=== PATIENT | female | born 1990 | race Caucasian/White ===

== ENCOUNTER 2018-12-24 18:41 | Emergency (ER) | payer BC ==
[2018-12-24] MEDS ORDERED: Sodium Chloride 0.9% 2.5 ML Syringe FLUSH PRN (19:08)
[2018-12-24] MEDS ORDERED: Sodium Chloride 0.9% 10 ML Syringe FLUSH PRN (19:08)
[2018-12-24] MEDS ORDERED: Sodium Chloride 0.9% 1,000 ML IV ONE (19:08)
--- NOTE | 2018-12-24 19:11 | EDM.PDOC ---
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 She also complains of dizziness and shortness of breath for several weeks. She was evaluated in OB prior to coming back to the emergency room and she has scar tissue that is causing her pain. She denies any chest pain states that her urine is yellow and has no other complaints. Review of systems: As per history of present illness and below otherwise all systems reviewed and negative. Past medical history: As per history of present illness and as reviewed below otherwise noncontributory. Surgical history: As per history of present illness and as reviewed below otherwise noncontributory. Social history: No reported history of drug or alcohol abuse. Family history: As per history of present illness and as reviewed below otherwise noncontributory. Physical exam: General: Well developed, well nourished in NAD HEENT: Atraumatic, normocephalic, pupils reactive, negative for conjunctival pallor or scleral icterus, mucous membranes moist, throat clear, neck supple, nontender, trachea midline. Lungs: Clear to auscultation, breath sounds equal bilaterally, chest nontender. Heart: S1S2, regular, negative for clicks, rubs, or JVD. Abdomen: NABS, Soft, nondistended, nontender. Negative for masses or hepatosplenomegaly. Negative for costovertebral tenderness. Pelvis: Stable nontender. Genitourinary: Deferred. Rectal: Deferred. Extremities: Atraumatic, negative for cords or calf pain. Neurovascular unremarkable. Neuro: Awake, alert, oriented. Cranial nerves II through XII unremarkable. Cerebellum unremarkable. Motor and sensory unremarkable throughout. Exam nonfocal. Skin:warm and dry Diagnostics: Vital signs are stable O2 sat 99% on room air. Therapeutics: IV fluid with improvement ED Course: Stable Impression: , dizziness, dehydration Prescriptions: None Plan: Take meds as directed, follow up with your primary care physician, return to ER if symptoms worsen or change. Definitive disposition and diagnosis as appropriate pending reevaluation and review of above. Abdomen Pain Score (Numeric/FACES): 8 - Related Data Allergies Allergy/AdvReac Type Severity Reaction Status Date / Time No Known Allergies Allergy Verified 12/24/18 19:04 Home Meds: Home Meds Euo360/FA/Omega3/Dha/Fish Oil [ Gummies] 1 piece PO DAILY 12/24/18 [ History] ED ROS GENERAL - Review of Systems Review Of Systems: See Below ED EXAM - Physical Exam Exam: See Below (See history of present illness) Course - Vital Signs Last Recorded V/S: Last Vital Signs Temp 97 F 12/24/18 19:04 Pulse 77 12/24/18 19:04 Resp BP 104/58 L 12/24/18 19:04 Pulse Ox 98 12/24/18 19:04 - Orders/Labs/Meds Orders: Active Orders 24 hr Category Date Time Status Sodium Chloride 0.9% [Saline Flush] Med 12/24/18 19:08 Active 10 ml FLUSH ASDIRECTED PRN Sodium Chloride 0.9% [Saline Flush] Med 12/24/18 19:08 Active 2.5 ml FLUSH ASDIRECTED PRN Saline Lock Insert [OM.PC] Stat Oth 12/24/18 19:08 Ordered Medication Orders Sodium Chloride (Saline Flush) 10 ml FLUSH ASDIRECTED PRN PRN Reason: Keep Vein Open Last Admin: 12/24/18 19:23 Dose: 10 ml Sodium Chloride (Saline Flush) 2.5 ml FLUSH ASDIRECTED PRN PRN Reason: Keep Vein Open Last Admin: 12/24/18 19:23 Dose: 2.5 ml Meds: Medications Generic Name Dose Route Start Last Admin Trade Name Freq PRN Reason Stop Dose Admin Sodium Chloride 10 ml 12/24/18 19:08 12/24/18 19:23 Saline Flush FLUSH 10 ml ASDIRECTED PRN Administration Keep Vein Open Sodium Chloride 2.5 ml 12/24/18 19:08 12/24/18 19:23 Saline Flush FLUSH 2.5 ml ASDIRECTED PRN Administration Keep Vein Open Discontinued Medications Generic Name Dose Route Start Last Admin Trade Name Freq PRN Reason Stop Dose Admin Sodium Chloride 1,000 mls @ 999 mls/hr 12/24/18 19:08 12/24/18 19:23 Normal Saline IV 12/24/18 20:08 999 mls/hr .Bolus ONE Administration Departure - Departure Time of Disposition: 20:29 Disposition: Home, Self-Care 01 Condition: Good Clinical Impression: Dehydration - Discharge Information *PRESCRIPTION DRUG MONITORING PROGRAM REVIEWED*: No *COPY OF PRESCRIPTION DRUG MONITORING REPORT IN PATIENT JAE: No Referrals: PCP,None [Primary Care Provider] - Forms: ED Department Discharge Additional Instructions: The following information is given to patients seen in the emergency department who are being discharged to home. This information is to outline your options for follow-up care. We provide all patients seen in our emergency department with a follow-up referral. The need for follow-up, as well as the timing and circumstances, are variable depending upon the specifics of your emergency department visit. If you don't have a primary care physician on staff, we will provide you with a referral. We always advise you to contact your personal physician following an emergency department visit to inform them of the circumstance of the visit and for follow-up with them and/or the need for any referrals to a consulting specialist. The emergency department will also refer you to a specialist when appropriate. This referral assures that you have the opportunity for follow-up care with a specialist. All of these measure are taken in an effort to provide you with optimal care, which includes your follow-up. Under all circumstances we always encourage you to contact your private physician who remains a resource for coordinating your care. When calling for follow-up care, please make the office aware that this follow-up is from your recent emergency room visit. If for any reason you are refused follow-up, please contact the [facility] at and asked to speak to the emergency department charge nurse. [facility] [address] [place] [id number] - My Orders Last 24 Hours: My Active Orders 12/24/18 19:08 Sodium Chloride 0.9% [Saline Flush] 10 ml FLUSH ASDIRECTED PRN Sodium Chloride 0.9% [Saline Flush] 2.5 ml FLUSH ASDIRECTED PRN Saline Lock Insert [OM.PC] Stat - Assessment/Plan Last 24 Hours: My Active Orders 12/24/18 19:08 Sodium Chloride 0.9% [Saline Flush] 10 ml FLUSH ASDIRECTED PRN Sodium Chloride 0.9% [Saline Flush] 2.5 ml FLUSH ASDIRECTED PRN Saline Lock Insert [OM.PC] Stat
== END 2018-12-24 20:40 | disposition home or self-care (01) ==
LOC: MW.ED 18:41
DX: O99.282 Endocrine, nutritional and metabolic diseases complicating pregnancy, second trimester (principal); E86.0 Dehydration; Z3A.20 20 weeks gestation of pregnancy
CPT/HCPCS: 96360; 99284; J7040

== ENCOUNTER 2019-03-15 05:50 | Inpatient (IN) | payer MEDICAID, BC ==
[2019-03-15] MEDS ORDERED: Sodium Chloride 0.9% 2.5 ML Syringe FLUSH PRN (05:59)
[2019-03-15] MEDS ORDERED: Sodium Chloride 0.9% 10 ML SDV IV PRN (05:59)
[2019-03-15] MEDS ORDERED: ceFAZolin 2 GM in Premix Bag 1 BAG IV ONE (05:59)
[2019-03-15] MEDS ORDERED: Sodium Chloride 0.9% 10 ML Syringe FLUSH PRN (05:59)
[2019-03-15] MEDS ORDERED: Citric Acid/Sodium Citrate Solution 30 ML Cup PO ONE (05:59)
[2019-03-15] MEDS ORDERED: Oxytocin/0.9 % Sodium Chloride 30 UNIT/500 ML BAG IV SCH (06:00)
[2019-03-15] MEDS: Lactated Ringers 1,000 ML IV SCH ×2 (06:00→07:25)
[2019-03-15] MEDS ORDERED: ceFAZolin/Dextrose,Iso-Osmotic 2 GM/50 ML Duplex Bag IV ONE (07:07)
[2019-03-15] MEDS ORDERED: Oxytocin 10 Units/1 ML SDV ONE ×2 (07:16→10:09)
[2019-03-15] MEDS ORDERED: ePHEDrine 50 MG/ML SDV ONE ×2 (07:16→10:09)
[2019-03-15] MEDS ORDERED: Sodium Chloride 0.9% 20 ML ONE (07:18)
--- NOTE | 2019-03-15 07:23 | PCM.PREANE ---
Preanesthetic Assessment - Anesthesia/Transfusion/Family Hx Anesthesia History: Prior Anesthesia Without Reaction Family History of Anesthesia Reaction: No Transfusion History: No Prior Transfusion(s) Intubation History: Unknown - Review of Systems General: No Symptoms Pulmonary: No Symptoms Cardiovascular: No Symptoms Gastrointestinal: No Symptoms Neurological: No Symptoms Other: Reports: None - Physical Assessment Height: 6 ft Weight: 97.522 kg ASA Class: 2 Mental Status: Alert & Oriented x3 Airway Class: Mallampati = 2 Dentition: Reports: Normal Dentition Thyro-Mental Finger Breadths: 3 Mouth Opening Finger Breadths: 3 ROM/Head Extension: Full Lungs: Clear to Auscultation, Normal Respiratory Effort Cardiovascular: Regular Rate, Regular Rhythm - Lab Values: Laboratory Last Values WBC 11.81 K/uL (4.0-11.0) H 03/15/19 06:42 RBC 4.46 M/uL (4.30-5.90) 03/15/19 06:42 Hgb 11.9 g/dL (12.0-16.0) L 03/15/19 06:42 Hct 36.8 % (36.0-46.0) 03/15/19 06:42 MCV 82.5 fL (80.0-98.0) 03/15/19 06:42 MCH 26.7 pg (27.0-32.0) L 03/15/19 06:42 MCHC 32.3 g/dL (31.0-37.0) 03/15/19 06:42 RDW Std Deviation 42.8 fl (28.0-62.0) 03/15/19 06:42 RDW Coeff of Melissa 14 % (11.0-15.0) 03/15/19 06:42 Plt Count 200 K/uL (150-400) 03/15/19 06:42 MPV 11.00 fL (7.40-12.00) 03/15/19 06:42 Nucleated RBC % 0.0 /100WBC 03/15/19 06:42 Nucleated RBCs # 0 K/uL 03/15/19 06:42 - Allergies Allergies/Adverse Reactions: Allergies Allergy/AdvReac Type Severity Reaction Status Date / Time Penicillins Allergy Rash Verified 03/09/19 10:00 - Blood Blood Available: No - Anesthesia Plan Pre-Op Medication Ordered: None - Acknowledgements Anesthesia Type Planned: Spinal Pt an Appropriate Candidate for the Planned Anesthesia: Yes Alternatives and Risks of Anesthesia Discussed w Pt/Guardian: Yes Pt/Guardian Understands and Agrees with Anesthesia Plan: Yes PreAnesthesia Questionnaire HEENT History: Reports: None Cardiovascular History: Reports: None Respiratory History: Reports: None Gastrointestinal History: Reports: Other (See Below) Other Gastrointestinal History: heartburn during Genitourinary History: Reports: UTI, Recurrent 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: Musculoskeletal History: Reports: None Neurological History: Reports: None Psychiatric History: Reports: ADHD Other Psychiatric History: treated for ADHD in the past Endocrine/Metabolic History: Reports: None Hematologic History: Reports: None Immunologic History: Reports: None Oncologic (Cancer) History: Reports: None Dermatologic History: Reports: None - Infectious Disease History Infectious Disease History: Reports: Chicken Pox - Past Surgical History Head Surgeries/Procedures: Reports: None HEENT Surgical History: Reports: Oral Surgery Cardiovascular Surgical History: Reports: None Respiratory Surgical History: Reports: None GI Surgical History: Reports: None Female Surgical History: Reports: Section Other Female Surgeries/Procedures: c/section x3 Endocrine Surgical History: Reports: None Neurological Surgical History: Reports: None Musculoskeletal Surgical History: Reports: Other (See Below) Other Musculoskeletal Surgeries/Procedures:: rt bunionectomy, surgery to rt index finger Dermatological Surgical History: Reports: None - SUBSTANCE USE Smoking Status *Q: Former Smoker Tobacco Use Within Last Twelve Months: Cigarettes Second Hand Smoke Exposure: Yes Recreational Drug Use History: No - HOME MEDS Home Medications: Home Meds Pnv No.103/Folic/Om3s/Fish Oil [ Gummies] 1 tab.chew CHEW DAILY [History] - CURRENT (IN HOUSE) MEDS Current Meds: Current Medications Lactated Ringer's (Ringers, Lactated) 1,000 mls @ 500 mls/hr IV BOLUS ANGIE Oxytocin/Sodium Chloride (Oxytocin 30 Unit/500 Ml-Ns) 30 unit in 500 mls @ 250 mls/hr IV TITRATE ANGIE Sodium Chloride (Saline Flush) 10 ml FLUSH ASDIRECTED PRN PRN Reason: Keep Vein Open Sodium Chloride (Saline Flush) 2.5 ml FLUSH ASDIRECTED PRN PRN Reason: Keep Vein Open Sodium Chloride (Normal Saline) 10 ml IV ASDIRECTED PRN PRN Reason: IV Use Discontinued Medications Cefazolin Sodium/Dextrose (Ancef) Confirm Administered Dose 2 gm IV .STK-MED ONE Stop: 03/15/19 07:08 Citric Acid/Sodium Citrate (Bicitra Solution) 30 ml PO ONETIME ONE Stop: 03/15/19 06:00 Ephedrine Sulfate (Ephedrine Sulfate) Confirm Administered Dose 50 mg .ROUTE .STK-MED ONE Stop: 03/15/19 07:17 Cefazolin Sodium/Dextrose 2 gm (/ Premix) 50 mls @ 100 mls/hr IV ONETIME ONE Stop: 03/15/19 06:28 Sodium Chloride (Normal Saline) Confirm Administered Dose 20 mls @ as directed .ROUTE .STK-MED ONE Stop: 03/15/19 07:19 Oxytocin (Pitocin) Confirm Administered Dose 20 unit .ROUTE .STK-MED ONE Stop: 03/15/19 07:17
[2019-03-15] MEDS ORDERED: Phenylephrine/Normal Saline 100 MCG/ML 10 ML Syringe ONE (07:26)
[2019-03-15] MEDS ORDERED: Octyl 2-Cyanoacrylate 1 Tube ONE (07:42)
[2019-03-15] MEDS ORDERED: Morphine PF 10 MG/10 ML SDV ONE (07:48)
[2019-03-15] MEDS ORDERED: Ondansetron 4 MG/2 ML SDV ONE (08:29)
--- NOTE | 2019-03-15 08:52 | PCM.OPNOTE ---
- General Post-Op/Procedure Note Date of Surgery/Procedure: 03/15/19 Operative Procedure(s): repeat low transverse Findings: Liveborn male 7/9 weight 4050 grams. Adhesion on left uterus to anterior wall near round ligament, extensive filmy adhesions over lower uterine segment. Pre Op Diagnosis: 39 weeks previous . Post-Op Diagnosis: Same Anesthesia Technique: Spinal Primary Surgeon: Ivis Olguin Secondary Surgeon: Anaid Caballero Anesthesia Provider: Carissa Devi Pathology: none Fluid Replacement, Intraop: 2,800 Output, Urine Amount: 100 EBL in mLs: 1,000 (including amniotic fluid) Complications: None Known Condition: Good
[2019-03-15] MEDS ORDERED: Bisacodyl 10 MG Supp RECTAL PRN (08:53)
[2019-03-15] MEDS ORDERED: Acetaminophen/oxyCODONE 325-5 MG Tab PO PRN ×3 (08:53→09:52)
[2019-03-15] MEDS ORDERED: Lanolin 100% Cream 7 GM Tube TOP PRN (08:53)
[2019-03-15] MEDS ORDERED: Ondansetron 4 MG/2 ML SDV IVPUSH PRN ×2 (08:53→09:52)
[2019-03-15] MEDS ORDERED: diphenhydrAMINE 50 MG/ML SDV IVPUSH PRN ×2 (08:53→09:52)
[2019-03-15] MEDS ORDERED: Lactated Ringers 1,000 ML IV SCH (09:00)
[2019-03-15] MEDS: Ketorolac 30 MG/ML SDV IVPUSH SCH ×3 (09:39→21:30)
[2019-03-15] MEDS ORDERED: Nalbuphine 10 MG/1 ML Vial IVPUSH PRN (09:52)
[2019-03-15] MEDS ORDERED: fentaNYL 100 MCG/2 ML SDV IVPUSH PRN (09:52)
[2019-03-15] MEDS ORDERED: Naloxone 0.4 MG/ML Syringe IVPUSH PRN (09:52)
--- NOTE | 2019-03-15 10:12 | OR ---
SURGEON: Ivis Olguin M.D. DATE OF PROCEDURE: 03/15/2019 PREOPERATIVE DIAGNOSES: A 39-week intrauterine , prior deliveries. POSTOPERATIVE DIAGNOSES: A 39-week intrauterine , prior deliveries, and pelvic adhesions. PROCEDURES: Repeat low-transverse section, adhesiolysis. PRIMARY SURGEON: Ivis Olguin MD. SURVEY RESEARCH ANALYST: Lakia Caballero, airline pilot/first officer student. ANESTHESIA: Spinal. ESTIMATED BLOOD LOSS: 1000 mL with amniotic fluid. IV FLUIDS: 2800 mL of crystalloid. URINE OUTPUT: 100 mL. FINDINGS: Liveborn male. score 7 and 9, weighing 4050 g. The tubes and ovaries appeared normal. The left side of uterus has a dense band, approximately 4 to 5 cm in length, adjacent to the left round ligament. I was able to easily proceed with the without cutting this band, which I felt would be quite vascular. There was also extensive filmy adhesions over the lower uterine segment, which were lysed. COMPLICATIONS: None known. DISPOSITION: Stable to recovery. BRIEF HISTORY: This is a 28-year-old female, G5, P 3-0-1-3. She presents at 39 weeks' gestation for a repeat delivery. She has had essentially uncomplicated care with a late transfer to our facility. She desires a repeat C- section with risks discussed including bleeding; infection; injury to bowel, bladder, blood vessels, or other organs; risk of thromboembolic event; and risk of anesthesia. Understanding all these risks, she does desire to proceed. DESCRIPTION OF PROCEDURE: With the patient in left tilt position, under adequate spinal analgesia, the abdomen was prepped with chlorhexidine and draped in usual fashion for abdominal surgery. SCDs were in place. Szymanski catheter had been placed, and she received 2 g of Ancef IV. After documentation of adequate analgesia, the prior cicatrix was excised and the incision was carried through subcutaneous tissue to the fascia, which was scored transversely in the midline. The fascia was elevated from the underlying rectus muscle and using sharp and blunt dissection. The rectus muscles were in the midline. A finger was used to enter the peritoneal cavity. There was note of filmy adhesions, and I carefully lysed these as I did extend the incision between the rectus muscles, and after a moderate degree of adhesiolysis, I was able to place the Zenon O C- section retractor with the visceroperitoneum well below the field of dissection. A transverse curvilinear incision was made over the lower uterine segment with a scalpel. Clear fluid was noted. Incision was extended laterally. The head was elevated from the pelvis to the uterine incision. Due to the scar tissue, there was not a lot of elasticity. Therefore, gentle traction with the vacuum placed 2 cm anterior to the posterior fontanelle without any pop-offs was utilized with fundal pressure to gently deliver the head without any difficulty, followed by subsequent delivery of the infant's shoulders and body. The was bulb suctioned by nose and mouth. After the cord had ceased to pulsate, it was doubly clamped and cut. The infant was handed to the nurse in attendance at delivery. The was a liveborn male. score 7 and 9, weighing 4050 g. Cord blood was collected for cord ABGs as well as routine cord blood sampling. Pitocin was initiated after delivery of the to assist with delivery of the placenta. The placenta was delivered by manual extraction. The uterus was cleaned with a dry laparotomy tape. The cervix was opened with ring forceps. The uterine incision was closed with a running lock suture of 0 Polysorb. The uterine incision was hemostatic. I did discuss with the patient whether or not she had any pain related to the left-sided adhesion. She stated that she did not. Therefore, no further dissection was performed. The Zenon O retractor was removed. The uterine incision was again inspected, it was hemostatic, therefore the rectus muscle and peritoneum were loosely approximated in the midline using a running mattress suture of 0 Polysorb. The posterior aspect of the fascia was evaluated and was hemostatic. The fascial incision was closed with a running suture of 0 Polysorb. Subcutaneous tissue was irrigated. Any areas of bleeding that were noted were cauterized. The deep subcutaneous tissue was closed with a running suture of 3-0 plain followed by a skin closure of running subcuticular suture of 3-0 Monocryl with Dermabond. Final sponge, needle, and instrument counts were reported as correct. There were no complications. The patient was transferred to recovery in good condition. MACIE MUNIZ /[id number]
[2019-03-15] MEDS ORDERED: Tranexamic Acid 1,000 MG in Sodium Chloride 0.9% 100 ML IV ONE (10:45)
[2019-03-15] MEDS ORDERED: Ondansetron 4 MG/2 ML SDV IVPUSH ONE (11:00)
[2019-03-15] MEDS ORDERED: Scopolamine 1.5 MG Transdermal Patch TRDERM PRN (11:12)
--- NOTE | 2019-03-15 11:19 | PCM.SN ---
- Free Text/Narrative Note: Called by patient's nurse that patient had episode of heavy bleeding soaking 2 pads, is feeling dizzy and diaphoretic while in bed. Given 1g TXA. Patient seen at bedside, appears stable. BP 112-113/57-59, HR 70s, O2 Sat of 99 % on 2L O2. Reports feeling dizzy with some chest pressure. Fundus firm and below the umbilicus, light trickle of blood with fundal massage. Abdomen soft and nondistended, dressing clean without bleeding. Given scopolamine patch and zofran. Continue to monitor.
--- NOTE | 2019-03-15 11:21 | PCM.POSTAN ---
POST ANESTHESIA ASSESSMENT - MENTAL STATUS Mental Status: Alert - VITAL SIGNS Vital Signs: Last Vital Signs Temp 36.9 C 03/15/19 09:09 Pulse 74 03/15/19 11:05 Resp 15 03/15/19 11:05 BP 110/57 L 03/15/19 11:05 Pulse Ox 100 03/15/19 11:05 - RESPIRATORY Respiratory Status: Respiratory Rate WNL - CARDIOVASCULAR CV Status: Pulse Rate WNL - GASTROINTESTINAL GI Status: No Symptoms - POST OP HYDRATION Hydration Status: Adequate & Stable - OBSERVATIONS Free Text/Narrative:: VSS. Patient still complains of dizziness. Dr. Olguin here and orders a scopolamine patch.
[2019-03-15] MEDS: Docusate Sodium 100 MG Cap PO SCH ×2 (14:23→22:28)
[2019-03-16] MEDS: Ketorolac 30 MG/ML SDV IVPUSH SCH ×2 (03:30→09:16)
--- NOTE | 2019-03-16 07:59 | PCM48HPAN ---
Post Anesthesia Note - EVALUATION WITHIN 48HRS OF ANESTHETIC Vital Signs in Normal Range: Yes Patient Participated in Evaluation: Yes Respiratory Function Stable: Yes Airway Patent: Yes Cardiovascular Function Stable: Yes Hydration Status Stable: Yes Pain Control Satisfactory: Yes Nausea and Vomiting Control Satisfactory: Yes Mental Status Recovered: Yes Vital Signs: Last Vital Signs Temp 36.6 C 03/16/19 03:56 Pulse 88 03/16/19 07:00 Resp 19 03/16/19 07:00 BP 104/60 03/16/19 03:56 Pulse Ox 95 03/16/19 07:00 - COMMENTS/OBSERVATIONS Free Text/Narrative:: Patient still complains of some dizziness. She still has her scopolamine patch on. RN in room. Discussed removing the scopolamine patch if she isn't nauseated anymore to see if it improves. RN and patient in agreement.
[2019-03-16] MEDS ORDERED: oxyCODONE 5 MG Tab PO PRN (08:54)
--- NOTE | 2019-03-16 08:54 | PCM.PNPP ---
- General Info Date of Service: 03/16/19 Functional Status: Reports: Pain Controlled, Tolerating Diet - Review of Systems General: Reports: No Symptoms HEENT: Reports: No Symptoms Pulmonary: Reports: No Symptoms Cardiovascular: Reports: No Symptoms Gastrointestinal: Reports: No Symptoms Genitourinary: Reports: No Symptoms Musculoskeletal: Reports: No Symptoms Skin: Reports: No Symptoms Neurological: Reports: No Symptoms Psychiatric: Reports: No Symptoms - General Info Date of Service: 03/16/19 - Patient Data Vital Signs - Most Recent: Last Vital Signs Temp 36.6 C 03/16/19 03:56 Pulse 88 03/16/19 07:00 Resp 19 03/16/19 07:00 BP 104/60 03/16/19 03:56 Pulse Ox 95 03/16/19 07:00 Weight - Most Recent: 97.522 kg I&O - Last 24 Hours: Intake & Output 03/15/19 03/16/19 03/16/19 22:59 06:59 14:59 Intake Total 2500 Output Total 625 3000 Balance -625 -500 Lab Results - Last 24 Hours: Laboratory Results - last 24 hr 03/15/19 03/16/19 Range/Units 08:26 05:14 Hgb 9.7 L (12.0-16.0) g/dL Hct 30.4 L (36.0-46.0) % Cord ABG pH 7.273 (7.18-7.38) Cord ABG Base Excess -6 (-10--2) Cord VBG pH 7.338 (7.25-7.45) Cord VBG Base Excess -3 (-10--2) Med Orders - Current: Current Medications Bisacodyl (Dulcolax) 10 mg RECTAL ONETIME PRN PRN Reason: Constipation Diphenhydramine HCl (Benadryl) 25 mg IVPUSH Q6H PRN PRN Reason: Itching or Nausea Diphenhydramine HCl (Benadryl) 25 mg IVPUSH Q4H PRN PRN Reason: Itching Stop: 03/16/19 09:52 Docusate Sodium (Colace) 100 mg PO BID ANGIE Last Admin: 03/15/19 22:28 Dose: 100 mg Emollient Ointment (Lansinoh Hpa) 0 gm TOP ASDIRECTED PRN PRN Reason: Sore Nipples Fentanyl (Sublimaze) 50 mcg IVPUSH Q1H PRN PRN Reason: Pain (severe 7-10) Lactated Ringer's (Ringers, Lactated) 1,000 mls @ 125 mls/hr IV ASDIRECTED ANGIE Last Admin: 03/15/19 13:27 Dose: 125 mls/hr Ibuprofen (Motrin) 800 mg PO Q8H PRN PRN Reason: mild pain or fever Ketorolac Tromethamine (Toradol) 30 mg IVPUSH Q6H [facility] Stop: 03/16/19 09:01 Last Admin: 03/16/19 03:30 Dose: Not Given Nalbuphine HCl (Nubain) 5 mg IVPUSH ASDIRECTED PRN PRN Reason: Itching Naloxone HCl (Narcan) 0.1 mg IVPUSH ONETIME PRN PRN Reason: Respiratory Depression Stop: 03/16/19 09:52 Ondansetron HCl (Zofran) 4 mg IVPUSH Q4H PRN PRN Reason: Nausea/Vomiting Last Admin: 03/15/19 08:30 Dose: 4 mg Ondansetron HCl (Zofran) 4 mg IVPUSH Q6H PRN PRN Reason: Nausea Oxycodone/Acetaminophen (Percocet 325-5 Mg) 1 tab PO Q4H PRN PRN Reason: Pain (moderate 4-6) Oxycodone/Acetaminophen (Percocet 325-5 Mg) 2 tab PO Q4H PRN PRN Reason: Pain (moderate 4-6) Oxycodone/Acetaminophen (Percocet 325-5 Mg) 2 tab PO Q6H PRN PRN Reason: Pain (moderate 4-6) Scopolamine (Transderm-Scop) 1.5 mg TRDERM Q72H PRN PRN Reason: Dizziness Last Admin: 03/15/19 11:23 Dose: 1.5 mg Discontinued Medications Cefazolin Sodium/Dextrose (Ancef) Confirm Administered Dose 2 gm IV .STK-MED ONE Stop: 03/15/19 07:08 Citric Acid/Sodium Citrate (Bicitra Solution) 30 ml PO ONETIME ONE Stop: 03/15/19 06:00 Last Admin: 03/16/19 07:37 Dose: Not Given Ephedrine Sulfate (Ephedrine Sulfate) Confirm Administered Dose 50 mg .ROUTE .STK-MED ONE Stop: 03/15/19 07:17 Ephedrine Sulfate (Ephedrine Sulfate) Confirm Administered Dose 50 mg .ROUTE .[facility] ONE Stop: 03/15/19 10:10 Cefazolin Sodium/Dextrose 2 gm (/ Premix) 50 mls @ 100 mls/hr IV ONETIME ONE Stop: 03/15/19 06:28 Last Admin: 03/16/19 07:37 Dose: Not Given Lactated Ringer's (Ringers, Lactated) 1,000 mls @ 500 mls/hr IV BOLUS ANGIE Last Admin: 03/15/19 07:25 Dose: 500 mls/hr Oxytocin/Sodium Chloride (Oxytocin 30 Unit/500 Ml-Ns) 30 unit in 500 mls @ 250 mls/hr IV TITRATE ANGIE Sodium Chloride (Normal Saline) Confirm Administered Dose 20 mls @ as directed .ROUTE .[facility] ONE Stop: 03/15/19 07:19 Tranexamic Acid 1,000 mg/ (Sodium Chloride) 110 mls @ 600 mls/hr IV ONETIME ONE Stop: 03/15/19 10:55 Last Admin: 03/15/19 10:45 Dose: 600 mls/hr Morphine Sulfate (Duramorph Pf) Confirm Administered Dose 10 mg .ROUTE .[facility] ONE Stop: 03/15/19 07:49 Octyl Cyanoacrylate (Dermabond Advance) Confirm Administered Dose 1 applic .ROUTE .[facility] ONE Stop: 03/15/19 07:43 Last Admin: 03/16/19 07:37 Dose: Not Given Ondansetron HCl (Zofran) Confirm Administered Dose 4 mg .ROUTE .[facility] ONE Stop: 03/15/19 08:30 Ondansetron HCl (Zofran) 4 mg IVPUSH ONETIME ONE Stop: 03/15/19 11:01 Last Admin: 03/15/19 11:04 Dose: 4 mg Oxytocin (Pitocin) Confirm Administered Dose 20 unit .ROUTE .[facility] ONE Stop: 03/15/19 07:17 Oxytocin (Pitocin) Confirm Administered Dose 20 unit .ROUTE .[facility] ONE Stop: 03/15/19 10:10 Phenylephrine HCl (Phenylephrine In Ns 100 Mcg/Ml) Confirm Administered Dose 2 mg .ROUTE .STK-MED ONE Stop: 03/15/19 07:27 Sodium Chloride (Saline Flush) 10 ml FLUSH ASDIRECTED PRN PRN Reason: Keep Vein Open Sodium Chloride (Saline Flush) 2.5 ml FLUSH ASDIRECTED PRN PRN Reason: Keep Vein Open Sodium Chloride (Normal Saline) 10 ml IV ASDIRECTED PRN PRN Reason: IV Use Tranexamic Acid (Cyklokapron) Confirm Administered Dose 1,000 mg .ROUTE .STK- MED ONE Stop: 03/15/19 10:41 Last Admin: 03/16/19 07:36 Dose: Not Given - Infant Interaction Support Person: Significant Other - Recovery Exam Fundal Tone: Firm Fundal Level: At Umbilicus Fundal Placement: Midline Lochia Amount: Scant Lochia Color: Rubra/Red Bladder Status: Indwelling Catheter in Place Urinary Elimination: Indwelling Catheter - Exam General: Alert, Oriented HEENT: Pupils Equal Neck: Supple Lungs: Clear to Auscultation, Normal Respiratory Effort Cardiovascular: Regular Rate, Regular Rhythm GI/Abdominal Exam: Normal Bowel Sounds, Soft, Non-Tender, No Distention Extremities: Normal Inspection, Non-Tender, No Pedal Edema Skin: Warm Wound/Incisions: Healing Well Neurological: No New Focal Deficit Psy/Mental Status: Alert, Normal Affect, Normal Mood - Problem List & Annotations (1) delivery delivered SNOMED Code(s): 122230282 Code(s): O82 - ENCOUNTER FOR DELIVERY WITHOUT INDICATION Status: Acute Current Visit: Yes - Problem List Review Problem List Initiated/Reviewed/Updated: Yes - My Orders Last 24 Hours: My Active Orders 03/15/19 08:53 Patient Status [ADT] Routine Ambulate [RC] PER UNIT ROUTINE Communication Order [RC] PER UNIT ROUTINE Communication Order [RC] PER UNIT ROUTINE Communication Order [RC] Per Unit Routine May Shower [RC] ASDIRECTED RT Incentive Spirometry [RC] Q2HWA Vital Signs [RC] PER UNIT ROUTINE Acetaminophen/oxyCODONE [Percocet 325-5 MG] 1 tab PO Q4H PRN Acetaminophen/oxyCODONE [Percocet 325-5 MG] 2 tab PO Q4H PRN Bisacodyl [Dulcolax] 10 mg RECTAL ONETIME PRN Ibuprofen [Motrin] 800 mg PO Q8H PRN Lanolin [Lansinoh HPA] See Dose Instructions TOP ASDIRECTED PRN Ondansetron [Zofran] 4 mg IVPUSH Q4H PRN diphenhydrAMINE [Benadryl] 25 mg IVPUSH Q6H PRN Abdominal Binder [OM.PC] Urgent Assess Lochia [WOMSER] Per Unit Routine Assess Uterine Involution [WOMSER] Per Unit Routine Breast Pump [WOMSER] Per Unit Routine Peripheral IV Discontinue [OM.PC] Routine Sequential Compression Device [OM.PC] Per Unit Routine Resuscitation Status Routine 03/15/19 08:54 Antiembolic Devices [RC] PER UNIT ROUTINE Notify Provider Intake and Out [RC] ASDIRECTED Notify Provider Vital Signs [RC] ASDIRECTED 03/15/19 09:00 Docusate Sodium [Colace] 100 mg PO BID Ketorolac [Toradol] 30 mg IVPUSH Q6H Lactated Ringers [Ringers, Lactated] 1,000 ml IV ASDIRECTED 03/15/19 11:12 Scopolamine [Transderm-Scop] 1.5 mg TRDERM Q72H PRN 03/15/19 Lunch Regular Diet [DIET] - Assessment Assessment:: POD#1 after repeat low transverse . Reviewed operative findings including dense adhesion near left round ligament, discussed use of vacuum to assist with delivery due to lack of elasticity of tissue. She states that she does not want narcotic medications, Tylenol and ibuprofen generally work fine for her. - Plan Plan:: Continue care, anticipate discharge in am.
[2019-03-16] MEDS: Docusate Sodium 100 MG Cap PO SCH ×2 (09:15→20:52)
[2019-03-16] MEDS: Acetaminophen 325 MG Tab PO PRN ×2 (09:15→20:49)
[2019-03-16] MEDS: Ibuprofen 800 MG Tab PO PRN ×2 (15:18→23:13)
[2019-03-17] MEDS: Ibuprofen 800 MG Tab PO PRN (06:40)
--- NOTE | 2019-03-17 08:21 | PCM.PNPP ---
- General Info Date of Service: 03/17/19 Functional Status: Reports: Pain Controlled, Tolerating Diet, Ambulating, Urinating, Other (Minimal vaginal bleeding. ) - Review of Systems General: Reports: No Symptoms HEENT: Reports: No Symptoms Pulmonary: Reports: No Symptoms Cardiovascular: Reports: No Symptoms Gastrointestinal: Reports: No Symptoms Genitourinary: Reports: No Symptoms Musculoskeletal: Reports: No Symptoms Skin: Reports: No Symptoms Neurological: Reports: No Symptoms Psychiatric: Reports: No Symptoms - Patient Data Vital Signs - Most Recent: Last Vital Signs Temp 36.4 C 03/17/19 07:58 Pulse 65 03/17/19 07:58 Resp 17 03/17/19 07:58 BP 109/58 L 03/17/19 07:58 Pulse Ox 96 03/17/19 07:58 Weight - Most Recent: 215 lb I&O - Last 24 Hours: Intake & Output 03/16/19 03/17/19 03/17/19 22:59 06:59 14:59 Intake Total 400 Balance 400 Med Orders - Current: Current Medications Acetaminophen (Tylenol) 650 mg PO Q6H PRN PRN Reason: Pain Last Admin: 03/16/19 20:49 Dose: 650 mg Bisacodyl (Dulcolax) 10 mg RECTAL ONETIME PRN PRN Reason: Constipation Diphenhydramine HCl (Benadryl) 25 mg IVPUSH Q6H PRN PRN Reason: Itching or Nausea Docusate Sodium (Colace) 100 mg PO BID [facility] Last Admin: 03/16/19 20:52 Dose: 100 mg Emollient Ointment (Lansinoh Hpa) 0 gm TOP ASDIRECTED PRN PRN Reason: Sore Nipples Fentanyl (Sublimaze) 50 mcg IVPUSH Q1H PRN PRN Reason: Pain (severe 7-10) Lactated Ringer's (Ringers, Lactated) 1,000 mls @ 125 mls/hr IV ASDIRECTED [facility] Last Admin: 03/15/19 13:27 Dose: 125 mls/hr Ibuprofen (Motrin) 800 mg PO Q8H PRN PRN Reason: mild pain or fever Last Admin: 03/17/19 06:40 Dose: 800 mg Nalbuphine HCl (Nubain) 5 mg IVPUSH ASDIRECTED PRN PRN Reason: Itching Ondansetron HCl (Zofran) 4 mg IVPUSH Q4H PRN PRN Reason: Nausea/Vomiting Last Admin: 03/15/19 08:30 Dose: 4 mg Ondansetron HCl (Zofran) 4 mg IVPUSH Q6H PRN PRN Reason: Nausea Oxycodone HCl (Oxycodone) 5 mg PO Q4H PRN PRN Reason: Pain Scopolamine (Transderm-Scop) 1.5 mg TRDERM Q72H PRN PRN Reason: Dizziness Last Admin: 03/15/19 11:23 Dose: 1.5 mg Discontinued Medications Cefazolin Sodium/Dextrose (Ancef) Confirm Administered Dose 2 gm IV .STK-MED ONE Stop: 03/15/19 07:08 Citric Acid/Sodium Citrate (Bicitra Solution) 30 ml PO ONETIME ONE Stop: 03/15/19 06:00 Last Admin: 03/16/19 07:37 Dose: Not Given Diphenhydramine HCl (Benadryl) 25 mg IVPUSH Q4H PRN PRN Reason: Itching Stop: 03/16/19 09:52 Ephedrine Sulfate (Ephedrine Sulfate) Confirm Administered Dose 50 mg .ROUTE .STK-MED ONE Stop: 03/15/19 07:17 Ephedrine Sulfate (Ephedrine Sulfate) Confirm Administered Dose 50 mg .ROUTE .STK-MED ONE Stop: 03/15/19 10:10 Cefazolin Sodium/Dextrose 2 gm (/ Premix) 50 mls @ 100 mls/hr IV ONETIME ONE Stop: 03/15/19 06:28 Last Admin: 03/16/19 07:37 Dose: Not Given Lactated Ringer's (Ringers, Lactated) 1,000 mls @ 500 mls/hr IV BOLUS ANGIE Last Admin: 03/15/19 07:25 Dose: 500 mls/hr Oxytocin/Sodium Chloride (Oxytocin 30 Unit/500 Ml-Ns) 30 unit in 500 mls @ 250 mls/hr IV TITRATE ANGIE Sodium Chloride (Normal Saline) Confirm Administered Dose 20 mls @ as directed .ROUTE .STK-MED ONE Stop: 03/15/19 07:19 Tranexamic Acid 1,000 mg/ (Sodium Chloride) 110 mls @ 600 mls/hr IV ONETIME ONE Stop: 03/15/19 10:55 Last Admin: 03/15/19 10:45 Dose: 600 mls/hr Ketorolac Tromethamine (Toradol) 30 mg IVPUSH Q6H ANGIE Stop: 03/16/19 09:01 Last Admin: 03/16/19 09:16 Dose: Not Given Morphine Sulfate (Duramorph Pf) Confirm Administered Dose 10 mg .ROUTE .STK-MED ONE Stop: 03/15/19 07:49 Naloxone HCl (Narcan) 0.1 mg IVPUSH ONETIME PRN PRN Reason: Respiratory Depression Stop: 03/16/19 09:52 Octyl Cyanoacrylate (Dermabond Advance) Confirm Administered Dose 1 applic .ROUTE .STK-MED ONE Stop: 03/15/19 07:43 Last Admin: 03/16/19 07:37 Dose: Not Given Ondansetron HCl (Zofran) Confirm Administered Dose 4 mg .ROUTE .STK-MED ONE Stop: 03/15/19 08:30 Ondansetron HCl (Zofran) 4 mg IVPUSH ONETIME ONE Stop: 03/15/19 11:01 Last Admin: 03/15/19 11:04 Dose: 4 mg Oxycodone/Acetaminophen (Percocet 325-5 Mg) 1 tab PO Q4H PRN PRN Reason: Pain (moderate 4-6) Oxycodone/Acetaminophen (Percocet 325-5 Mg) 2 tab PO Q4H PRN PRN Reason: Pain (moderate 4-6) Oxycodone/Acetaminophen (Percocet 325-5 Mg) 2 tab PO Q6H PRN PRN Reason: Pain (moderate 4-6) Oxytocin (Pitocin) Confirm Administered Dose 20 unit .ROUTE .STK-MED ONE Stop: 03/15/19 07:17 Oxytocin (Pitocin) Confirm Administered Dose 20 unit .ROUTE .STK-MED ONE Stop: 03/15/19 10:10 Phenylephrine HCl (Phenylephrine In Ns 100 Mcg/Ml) Confirm Administered Dose 2 mg .ROUTE .STK-MED ONE Stop: 03/15/19 07:27 Sodium Chloride (Saline Flush) 10 ml FLUSH ASDIRECTED PRN PRN Reason: Keep Vein Open Sodium Chloride (Saline Flush) 2.5 ml FLUSH ASDIRECTED PRN PRN Reason: Keep Vein Open Sodium Chloride (Normal Saline) 10 ml IV ASDIRECTED PRN PRN Reason: IV Use Tranexamic Acid (Cyklokapron) Confirm Administered Dose 1,000 mg .ROUTE .STK- MED ONE Stop: 03/15/19 10:41 Last Admin: 03/16/19 07:36 Dose: Not Given - Infant Interaction Disposition, : [place] in Room with Family Infant Feeding: Attempted ; Nursed Fair/Poor Support Person: Significant Other - Recovery Exam Fundal Tone: Firm Fundal Level: 1 Fingerbreadths Below Umbilicus Fundal Placement: Midline Lochia Amount: Scant Lochia Color: Rubra/Red Bladder Status: Voiding Urinary Elimination: Voided - Exam General: Alert, Oriented, No Acute Distress HEENT: Pupils Equal, Pupils Reactive, EOMI Neck: Supple, Trachea Midline, No JVD Lungs: Normal Respiratory Effort GI/Abdominal Exam: Soft, No Distention Extremities: Normal Inspection, Normal Range of Motion, Non-Tender, No Pedal Edema Skin: Warm, Dry, Intact Wound/Incisions: Healing Well Neurological: No New Focal Deficit Psy/Mental Status: Alert, Normal Affect, Normal Mood - Problem List Review Problem List Initiated/Reviewed/Updated: Yes - Assessment Assessment:: POD#2 after repeat low transverse . - Plan Plan:: VSS Hgb 9.7, denies symptoms of anemia. Advised to start iron supplements BID Passing flatus Pain controlled with motrin Incision healing well Stable for discharge home today, reviewed postop care. Follow up in 2 week for incision check
== END 2019-03-17 11:46 | disposition home or self-care (01) | DRG 788 ==
LOC: MW.OB 05:50
PROVIDERS: ADMIT Obstetrics & Gynecology; ATTEND Obstetrics & Gynecology
PROC: 10D00Z1 Extraction of Products of Conception, Low, Open Approach (ICD-10-PCS; principal; 2019-03-15)
PROC: 0UN40ZZ Release Uterine Supporting Structure, Open Approach (ICD-10-PCS; 2019-03-15)
DX: O34.211 Maternal care for low transverse scar from previous cesarean delivery (principal); Z37.0 Single live birth; Z3A.39 39 weeks gestation of pregnancy
CPT/HCPCS: 36415; 59025; 82803; 85014; 85018; 85027; 86593; 86850; 86900; 86901; A9270-GY; J0690; J1885; J2270; J2370; J2405; J2590; J7030; J7120